=== PATIENT | female | born 1990 | race Two or more races ===

== ENCOUNTER 2020-07-30 13:02 | Emergency (ER) | payer OTHER ==
[~2020-07-30] VITALS: Ht 170.2 cm; Wt 90.5 kg
[2020-07-30 13:46] LABS: COVID AG,FIA SOURCE NASOPHARYNGEAL
[2020-07-30 15:28] VITALS: BP 111/68
== END 2020-07-30 15:34 | disposition home or self-care (01) ==
LOC: EMS 13:02
DX: Z20.828 Contact with and (suspected) exposure to other viral communicable diseases (principal)
CPT/HCPCS: 87426